=== PATIENT | female | born 1940 | race Caucasian/White ===

== ENCOUNTER 2018-01-04 16:24 | Outpatient (CLI) | payer MEDICARE ==
[2018-01-04 19:07] LABS: BASOPHILS # (AUTO) 0.1 10^3/uL (0.0-0.1); BASOPHILS % (AUTO) 1.3 %; EOSINOPHILS # (AUTO) 0.1 10^3/uL (0.0-0.7); EOSINOPHILS % (AUTO) 2.2 %; HGB - HEMOGLOBIN 13.2 g/dL (12.0-16.0); LYMPHOCYTES # (AUTO) 1.7 10^3/uL (1.5-3.5); MEAN CORPUSCULAR HEMOGLOBIN 32.3 pg (27.0-31.0); MEAN CORPUSCULAR HGB CONC 33.1 g/dL (32.0-36.0); MEAN CORPUSCULAR VOLUME 97.6 fL (81.0-99.0); MEAN PLATELET VOLUME 8.2 fL (7.9-10.8); MONOCYTES # (AUTO) 0.8 10^3/uL (0.0-1.0); NEUTROPHILS # (AUTO) 2.8 10^3/uL (1.5-6.6); NEUTROPHILS % (AUTO) 51.5 %; PLT - PLATELET COUNT 331 10^3/uL (130-450); RED BLOOD COUNT 4.09 10^6/uL (4.20-5.40); RED CELL DISTRIBUTION WIDTH 15.5 % (12.0-15.0); WHITE BLOOD COUNT 5.5 x10^3/uL (4.8-10.8)
[2018-01-04 19:21] LABS: ALBUMIN 3.9 g/dL (3.2-5.5); ALBUMIN/GLOBULIN RATIO 1.1 (1.0-2.2); ALKALINE PHOSPHATASE 83 IU/L (42-121); ALT ALANINE AMINOTRANSFERASE 16 IU/L (10-60); AST ASPARTATE AMINOTRANSFERASE 28 IU/L (10-42); BILIRUBIN,TOTAL 0.5 mg/dL (0.2-1.0); BUN - BLOOD UREA NITROGEN 16 mg/dL (6-20); CALCIUM 9.4 mg/dL (8.5-10.3); CARBON DIOXIDE - CO2 25 mmol/L (21-32); CHLORIDE 102 mmol/L (101-111); GFR - MDRD 54 (>89); GLUCOSE 91 mg/dL (70-100); SODIUM 137 mmol/L (135-145); TOTAL PROTEIN 7.4 g/dL (6.7-8.2)
[2018-01-04 20:02] LABS: THYROID STIMULATING HORMONE 74.06 uIU/mL (0.34-5.60)
[2018-01-04 20:36] LABS: FREE T4 (FREE THYROXINE) 0.48 ng/dL (0.58-1.64)
== END 2018-01-04 16:25 | disposition home or self-care (01) ==
LOC: LAB.WCP 16:24
PROVIDERS: ATTEND Family Medicine
DX: R63.4 Abnormal weight loss (principal); E03.9 Hypothyroidism, unspecified; C91.10 Chronic lymphocytic leukemia of B-cell type not having achieved remission
CPT/HCPCS: 36415; 80053; 84439; 84443; 84481; 85025

== ENCOUNTER 2018-02-03 13:42 | Outpatient (CLI) | payer MEDICARE ==
[2018-02-03] MEDS ORDERED: IOPAMIDOL-300 100 ML VIAL ONE (13:58)
[2018-02-03] MEDS ORDERED: IOPAMIDOL-300 50 ML VIAL ONE (13:58)
[2018-02-03] MEDS ORDERED: IOPAMIDOL-300 50 ML VIAL PO ONE (15:13)
[2018-02-03] MEDS ORDERED: IOPAMIDOL-300 100 ML VIAL IVP ONE (15:13)
--- NOTE | 2018-02-04 14:19 | CT Report ---
CT CHEST WITH CONTRAST: 02/03/2018 CLINICAL INDICATION: Weight loss, history of breast cancer. TECHNIQUE: Axial CT images of the chest were obtained with 100 mL Isovue 300 intravenously. COMPARISON: No previous CT is available for comparison. FINDINGS: The heart and great vessels demonstrate atherosclerotic calcifications. No hilar or mediastinal lymphadenopathy is present. A moderate hiatal hernia is present. The lungs demonstrate emphysema. A calcified granuloma is noted in the right upper lobe. No effusion or pneumothorax is present. No noncalcified pulmonary nodule is appreciated. Osseous structures demonstrate degenerative changes. IMPRESSION: NO EVIDENCE OF METASTATIC DISEASE. EMPHYSEMA. OLD GRANULOMATOUS DISEASE. HIATAL HERNIA. CT DOSE REDUCTION STATEMENT In accordance with CT protocol optimization, one or more of the following dose reduction techniques were utilized for this exam: automated exposure control, adjustment of mA and/or KV based on patient size, or use of iterative reconstructive technique. TD: 02/04/2018 14:18
--- NOTE | 2018-02-04 14:22 | CT Report ---
CT ABDOMEN AND PELVIS WITH CONTRAST: 02/03/2018 CLINICAL INDICATION: Weight loss, history of breast cancer. COMPARISON: 02/19/2013. TECHNIQUE: Axial CT images of the abdomen and pelvis were obtained with 100 mL Isovue 300 intravenously as well as oral contrast. FINDINGS: ABDOMEN: There is a moderate hiatal hernia present. The liver, spleen, pancreas, kidneys and adrenal glands are unremarkable. The gallbladder is not dilated. No bowel dilatation, free gas, or free fluid is present. No abdominal adenopathy is seen. PELVIS: Postoperative changes of hysterectomy are present. No pelvic adenopathy or free fluid is present. Colonic diverticulosis is seen, without CT evidence of diverticulitis. Osseous structures demonstrate degenerative changes. IMPRESSION: NO EVIDENCE OF METASTATIC DISEASE. POSTOPERATIVE CHANGES OF HYSTERECTOMY. CT DOSE REDUCTION STATEMENT In accordance with CT protocol optimization, one or more of the following dose reduction techniques were utilized for this exam: automated exposure control, adjustment of mA and/or KV based on patient size, or use of iterative reconstructive technique. TD: 02/04/2018 14:21
== END 2018-02-03 13:43 | disposition home or self-care (01) ==
LOC: DI 13:42
PROVIDERS: ATTEND Family Medicine
DX: C50.512 Malignant neoplasm of lower-outer quadrant of left female breast (principal); R63.4 Abnormal weight loss
CPT/HCPCS: 71260; 74177; Q9967

== ENCOUNTER 2018-02-27 15:24 | Outpatient (CLI) | payer MEDICARE | END 2018-02-27 15:25 | disposition home or self-care (01) | LOC: LAB.WCP 15:24 | PROVIDERS: ATTEND Family Medicine | DX: R63.4 Abnormal weight loss (principal) | CPT/HCPCS: 36415; 84443 ==

== ENCOUNTER 2018-03-03 10:46 | Outpatient (CLI) | payer MEDICARE ==
--- NOTE | 2018-03-03 16:56 | Nuclear Medicine Report ---
EXAM: BONE SCAN EXAM DATE: 03/03/2018 03:23 PM. CLINICAL HISTORY: BREAST CANCER. COMPARISON: CT 02/03/2018. TECHNIQUE: Following the intravenous administration of 30.6 mCi of technetium 99m MDP and an appropri ate delay, a whole-body scan was performed in anterior and posterior projections. FINDINGS: Exam Quality: Normal overall osseous radiotracer uptake. Physiological tracer uptake in bilateral col lecting systems. Skull: No focal uptake. Thorax: No focal lesions in ribs or sternum. Pelvis: No focal lesions. Spine: There is a convex left thoracolumbar scoliotic curvature. No abnormal focal increased uptake i n the spine. IMPRESSION: No scintigraphic evidence to indicate skeletal metastatic disease. [facility] Referring Provider Line: [phone] SITE ID: [id number]
== END 2018-03-03 10:47 | disposition home or self-care (01) ==
LOC: DI 10:46
PROVIDERS: ATTEND Internal Medicine
DX: C50.919 Malignant neoplasm of unspecified site of unspecified female breast (principal)
CPT/HCPCS: 78306; A9503

== ENCOUNTER 2018-12-07 13:35 | Outpatient (CLI) | payer MEDICARE ==
--- NOTE | 2018-12-08 09:43 | XRAY Report ---
Reason: WRIST PAIN Procedure Date: 12/07/2018 Accession Number: [id number] / [id number] Procedure: WCP - Wrist 3 View RT CPT Code: FULL RESULT: EXAM: RIGHT WRIST RADIOGRAPHY EXAM DATE: 12/07/2018 01:59 PM. CLINICAL HISTORY: Wrist pain. COMPARISON: None. TECHNIQUE: 3 views. FINDINGS: Presumed contracture of the right hand is noted. Limited positioning somewhat limits evaluation of the carpal bones. The carpal rows appear preserved. There are advanced degenerative changes of the first carpometacarpal interaction resulting in subluxation of the thumb with less severe degenerative changes also seen at the second carpometacarpal interface, likely as a result of the former. Bones are qualitatively osteopenic which limits sensitivity for fracture. Despite this, there is a lucency through the distal radius which is concerning for nondisplaced fracture and demonstrates surrounding soft tissue swelling. IMPRESSION: Distal radial fracture. Qualitatively osteopenia. [facility] The call report notification system was initiated by Dr. Jensen Rasmussen at 09:32 AM on 12/08/2018. ADDENDUM: 12/08/18 10:06 The above call report findings were discussed with Skylar Miguel by Dr. Jensen Rasmussen at 10:06 AM on 12/08/2018.
== END 2018-12-07 13:36 | disposition home or self-care (01) ==
LOC: DI.WCP 13:35
PROVIDERS: ATTEND Family Medicine
DX: S52.501A Unspecified fracture of the lower end of right radius, initial encounter for closed fracture (principal); M85.88 Other specified disorders of bone density and structure, other site

== ENCOUNTER 2019-01-08 08:00 | Outpatient (CLI) | payer MEDICARE | END 2019-01-08 23:59 | disposition home or self-care (01) | LOC: LAB.R 08:00 | PROVIDERS: ATTEND Family Medicine | DX: L03.90 Cellulitis, unspecified (principal) | CPT/HCPCS: 87070; 87205 ==

== ENCOUNTER 2019-01-08 11:32 | Outpatient (CLI) | payer MEDICARE ==
--- NOTE | 2019-01-08 12:37 | XRAY Report ---
Reason: RIGHT RADIUS FRACTURE Procedure Date: 01/08/2019 Accession Number: [id number] / [id number] Procedure: WCP - Wrist 3 View RT CPT Code: FULL RESULT: EXAM: RIGHT WRIST RADIOGRAPHY EXAM DATE: 01/08/2019 11:42 AM. CLINICAL HISTORY: Right radius fracture. COMPARISON: WRIST 3 VIEW RT 12/07/2018 1:42 PM. TECHNIQUE: 3 views. FINDINGS: There has been interval impaction of the previously difficult to detect distal radial fracture with apex dorsal angulation. Hand contracture is again noted. Advanced degenerative changes of the carpometacarpal interaction predominantly of the first ray. Bones remain qualitatively osteopenic. IMPRESSION: Redemonstration of distal radial fracture, now clearly impacted. [facility]
== END 2019-01-08 11:33 | disposition home or self-care (01) ==
LOC: DI.WCP 11:32
PROVIDERS: ATTEND Family Medicine
DX: S52.501D Unspecified fracture of the lower end of right radius, subsequent encounter for closed fracture with routine healing (principal); L03.90 Cellulitis, unspecified
CPT/HCPCS: 87070; 87205

== ENCOUNTER 2019-01-24 11:32 | Outpatient (CLI) | payer MEDICARE ==
[2019-01-24 19:22] LABS: BASOPHILS # (AUTO) 0.1 10^3/uL (0.0-0.1); BASOPHILS % (AUTO) 1.5 %; EOSINOPHILS # (AUTO) 0.2 10^3/uL (0.0-0.7); EOSINOPHILS % (AUTO) 4.4 %; HGB - HEMOGLOBIN 14.2 g/dL (12.0-16.0); LYMPHOCYTES % (AUTO) 38.2 %; MEAN CORPUSCULAR HEMOGLOBIN 32.3 pg (27.0-31.0); MEAN CORPUSCULAR HGB CONC 32.5 g/dL (32.0-36.0); MEAN CORPUSCULAR VOLUME 99.4 fL (81.0-99.0); MEAN PLATELET VOLUME 8.4 fL (7.9-10.8); MONOCYTES # (AUTO) 0.4 10^3/uL (0.0-1.0); MONOCYTES % (AUTO) 8.6 %; NEUTROPHILS # (AUTO) 2.4 10^3/uL (1.5-6.6); NEUTROPHILS % (AUTO) 47.3 %; PLT - PLATELET COUNT 336 10^3/uL (130-450); RED BLOOD COUNT 4.39 10^6/uL (4.20-5.40); RED CELL DISTRIBUTION WIDTH 14.1 % (12.0-15.0); WHITE BLOOD COUNT 5.2 x10^3/uL (4.8-10.8)
[2019-01-24 19:33] LABS: ALBUMIN/GLOBULIN RATIO 1.1 (1.0-2.2); BILIRUBIN,TOTAL 0.5 mg/dL (0.2-1.0); CALCIUM 8.8 mg/dL (8.5-10.3); CREATININE 0.8 mg/dL (0.4-1.0); TOTAL PROTEIN 7.6 g/dL (6.7-8.2)
== END 2019-01-24 11:33 | disposition home or self-care (01) ==
LOC: LAB.WCP 11:32
PROVIDERS: ATTEND Family Medicine
DX: M06.9 Rheumatoid arthritis, unspecified (principal); C50.912 Malignant neoplasm of unspecified site of left female breast; E03.9 Hypothyroidism, unspecified
CPT/HCPCS: 36415; 80053; 83615; 84443; 85025; 85651

== ENCOUNTER 2019-01-25 11:32 | Outpatient (CLI) | payer MEDICARE | END 2019-01-25 11:33 | disposition home or self-care (01) | LOC: LAB.WCP 11:32 | PROVIDERS: ATTEND Family Medicine | DX: M06.9 Rheumatoid arthritis, unspecified (principal); C50.912 Malignant neoplasm of unspecified site of left female breast; E03.9 Hypothyroidism, unspecified | CPT/HCPCS: 83615 ==

== ENCOUNTER 2019-04-25 14:48 | Outpatient (CLI) | payer MEDICARE ==
[2019-04-25 15:24] LABS: BASOPHILS # (AUTO) 0.1 10^3/uL (0.0-0.1); BASOPHILS % (AUTO) 1.2 %; EOSINOPHILS # (AUTO) 0.4 10^3/uL (0.0-0.7); EOSINOPHILS % (AUTO) 7.1 %; HGB - HEMOGLOBIN 13.2 g/dL (12.0-16.0); LYMPHOCYTES # (AUTO) 2.1 10^3/uL (1.5-3.5); LYMPHOCYTES % (AUTO) 36.9 %; MEAN CORPUSCULAR HEMOGLOBIN 31.3 pg (27.0-31.0); MEAN CORPUSCULAR HGB CONC 31.6 g/dL (32.0-36.0); MEAN CORPUSCULAR VOLUME 99.1 fL (81.0-99.0); MEAN PLATELET VOLUME 9.1 fL (7.9-10.8); MONOCYTES # (AUTO) 0.5 10^3/uL (0.0-1.0); MONOCYTES % (AUTO) 8.8 %; NEUTROPHILS # (AUTO) 2.6 10^3/uL (1.5-6.6); NEUTROPHILS % (AUTO) 45.7 %; PLT - PLATELET COUNT 358 10^3/uL (130-450); RED BLOOD COUNT 4.22 10^6/uL (4.20-5.40); RED CELL DISTRIBUTION WIDTH 13.9 % (12.0-15.0); WHITE BLOOD COUNT 5.8 x10^3/uL (4.8-10.8)
[2019-04-25 15:47] LABS: ALBUMIN 3.7 g/dL (3.2-5.5); ALBUMIN/GLOBULIN RATIO 1.1 (1.0-2.2); BILIRUBIN,TOTAL 0.4 mg/dL (0.2-1.0); CALCIUM 8.8 mg/dL (8.5-10.3); CREATININE 0.9 mg/dL (0.4-1.0); TOTAL PROTEIN 7.2 g/dL (6.7-8.2)
[2019-04-25 17:28] LABS: FREE T4 (FREE THYROXINE) 1.02 ng/dL (0.58-1.64)
== END 2019-04-25 14:49 | disposition home or self-care (01) ==
LOC: LAB 14:48
PROVIDERS: ATTEND Family Medicine
DX: R06.00 Dyspnea, unspecified (principal); E03.9 Hypothyroidism, unspecified
CPT/HCPCS: 36415; 80053; 83880; 84439; 84443; 85025

== ENCOUNTER 2019-05-28 09:47 | Outpatient (CLI) | payer MEDICARE | END 2019-05-28 09:48 | disposition home or self-care (01) | LOC: DI 09:47 | PROVIDERS: ATTEND Family Medicine | DX: R06.00 Dyspnea, unspecified (principal); M85.80 Other specified disorders of bone density and structure, unspecified site | CPT/HCPCS: 71046; 93306 ==

== ENCOUNTER 2019-05-28 09:48 | Outpatient (CLI) | payer MEDICARE ==
--- NOTE | 2019-05-28 16:15 | XRAY Report ---
Reason: DYSPNEA ON EXERTION Procedure Date: 05/28/2019 Accession Number: [id number] / [id number] Procedure: XR - Chest 2 View X-Ray CPT Code: 20851 FULL RESULT: EXAM: CHEST RADIOGRAPHY EXAM DATE: 05/28/2019 10:04 AM. CLINICAL HISTORY: DYSPNEA ON EXERTION. COMPARISON: XR CHEST PA AND LAT 11/07/2012 11:46 AM CHEST W/ 02/03/2018 3:03 PM. TECHNIQUE: 2 views. FINDINGS: Lungs/Pleura: No focal opacities evident. No pleural effusion. No pneumothorax. Normal volumes. Mediastinum: Heart and mediastinal contours are stable including calcified aorta, not enlarged. Other: S-shaped thoracolumbar scoliosis is again seen, similar in appearance to 2012. Bones appear qualitatively osteopenic. Mild thoracic kyphosis. Suspect interval development of mid to lower thoracic compression fracture, poorly visualized due to osteopenia, potentially T8. IMPRESSION: Question interval development of thoracic compression fracture, level and nature of the finding not well seen given profound osteopenia, possibly T8. [facility]
== END 2019-05-28 09:49 | disposition home or self-care (01) ==
LOC: DI 09:48
PROVIDERS: ATTEND Family Medicine
DX: R06.00 Dyspnea, unspecified (principal); M85.80 Other specified disorders of bone density and structure, unspecified site
CPT/HCPCS: 71046

== ENCOUNTER 2019-05-30 14:20 | Outpatient (CLI) | payer MEDICARE ==
--- NOTE | 2019-05-31 15:32 | XRAY Report ---
Reason: ACUTE LOW BACK PAIN Procedure Date: 05/30/2019 Accession Number: [id number] / [id number] Procedure: WCP - Lumbar Spine 2 View CPT Code: FULL RESULT: EXAM: LUMBOSACRAL SPINE RADIOGRAPHY EXAM DATE: 05/30/2019 02:34 PM. CLINICAL HISTORY: Acute low back pain. COMPARISONS: ABDOMEN/PELVIS W/ 02/03/2018 3:03 PM. TECHNIQUE: 2 views. FINDINGS: Alignment: There is essentially severe levoconvex thoracolumbar scoliosis centered about L1, approximately 38 degrees. While the scoliosis is overall similar in configuration to prior, the finding appears subjectively more severe, evaluation limited by differences in technique. No definite listhesis is seen on the lateral view. Bones: Five qfh-ywf-deqqugh lumbar vertebral bodies are present. The bones are qualitatively osteopenic; this limits evaluation for underlying fractures or masses. Disks: There are multilevel degenerative changes most pronounced at the apex of the scoliosis. Facets: There is moderate to severe facet arthropathy of the lower lumbar spine. Sacroiliac Joints: Unremarkable. Soft Tissues: Markedly calcified aorta. IMPRESSION: Severe scoliosis with osteopenia, interval fracture is not seen but not excluded. Recommendation: In the setting of acute lower back pain in the mid lumbar area, noncontrast MRI of the lumbar spine is recommended in this patient. [facility]
== END 2019-05-30 23:59 | disposition home or self-care (01) ==
LOC: DI.WCP 14:20
PROVIDERS: ATTEND Family Medicine
DX: M51.36 Other intervertebral disc degeneration, lumbar region (principal); M47.816 Spondylosis without myelopathy or radiculopathy, lumbar region; M85.88 Other specified disorders of bone density and structure, other site; M41.85 Other forms of scoliosis, thoracolumbar region
CPT/HCPCS: 72100

== ENCOUNTER 2019-08-10 10:16 | Outpatient (CLI) | payer MEDICARE ==
--- NOTE | 2019-08-10 15:58 | DEXA Report ---
Reason: POSTMENOPAUSAL, OSTEOPOROSIS Procedure Date: 08/10/2019 Accession Number: [id number] / [id number] Procedure: DEX - Dexa Spine and/or Hip CPT Code: FULL RESULT: EXAM: Dexa Spine and/or Hip DATE: 08/10/2019 10:41 AM CLINICAL HISTORY: POSTMENOPAUSAL, OSTEOPOROSIS FOLLOW-UP TECHNIQUE: Dual energy x-ray absorptiometry (DXA) was performed on a [employer] System. Regions measured are the AP Spine, femoral neck, and if needed forearm. COMPARISON: 01/15/2008 In accordance with the International Society for Clinical Densitometry (ISCD) guidelines, data from previous exams may be reanalyzed using current recommendations and techniques. This is done to allow a more accurate basis for comparison with the current study. FINDINGS: The data for the lumbar spine is as follows: BMD (g/cm/cm) T-SCORE Z-SCORE REGION L1 0.895 -2.0 0.0 L2 1.045 -1.3 0.7 L3 0.996 -1.7 0.3 L4 0.974 -1.9 0.1 TOTAL 0.979 -1.7 0.3 NOTE: All evaluable vertebrae are used for classification The data for the hip is as follows: BMD (g/cm/cm) T-SCORE Z-SCORE REGION Neck 0.684 -2.5 -0.3 TOTAL 0.648 -2.9 -0.8 NOTE: The femoral neck or total proximal femur, whichever is lowest, is used for classification. IMPRESSION: THE WHO CLASSIFICATION BASED ON THE INTERNATIONAL REFERENCE STANDARD IS OSTEOPOROSIS, REFERENCE TOTAL LEFT HIP. THE FRACTURE RISK IS HIGH. RECOMMENDATION: Patients with diagnosis of osteoporosis or osteopenia should have regular bone mineral density assessment. For those eligible for Medicare, routine testing is allowed once every 2 years. Testing frequency can be increased for patients who have rapidly progressing disease or for those who are receiving medical therapy to restore bone mass. COMMENT: World Health Organization (WHO) definitions for osteoporosis and osteopenia: NORMAL BMD: T-score at -1.0 or higher, fracture risk is low OSTEOPENIA BMD: T-score between -1.0 and -2.5, fracture risk is increased. OSTEOPOROSIS BMD: T-score at -2.5 or lower, fracture risk is high. National Osteoporosis Foundation recommends: 1. Obtain adequate dietary calcium (at least 1200 mg per day) and vitamin D (400-800 international units per day). 2. Participate, as appropriate, in regular weightbearing and muscle-strengthening exercise. 3. Avoid tobacco use and reduce alcohol and caffeine intake. 4. For more detailed information see the website at www.NOF.org.
== END 2019-08-10 10:17 | disposition home or self-care (01) ==
LOC: DI 10:16
PROVIDERS: ATTEND Internal Medicine
DX: M81.0 Age-related osteoporosis without current pathological fracture (principal); C50.912 Malignant neoplasm of unspecified site of left female breast; C95.90 Leukemia, unspecified not having achieved remission; R63.4 Abnormal weight loss
CPT/HCPCS: 77080

== ENCOUNTER 2020-05-07 15:59 | Outpatient (CLI) | payer MEDICARE ==
--- NOTE | 2020-05-07 17:10 | XRAY Report ---
PROCEDURE: Hand 3 View BILAT INDICATIONS: BILAT RHEUMATOID ARTHRITIS TECHNIQUE: 3 views of the hand(s) acquired. COMPARISON: None FINDINGS: Bones: No fractures or dislocations. No suspicious bony lesions. There is moderate to severe first CMC narrowing, left greater than right with areas of periarticular osteophyte and subchondral sclero sis/lucencies. There are diffuse areas of IP degenerative narrowing at all digits bilaterally appeari ng relatively symmetric. Small periarticular osteophytes are present. No definitive areas of erosive change are identified. Soft tissues: No suspicious soft tissue calcifications. IMPRESSION: Bilateral first CMC and IP areas of arthritic narrowing bilaterally as above. Reviewed by: Mony Henry MD on 05/07/2020 5:08 PM PDT Approved by: Mony Henry MD on 05/07/2020 5:08 PM PDT Station ID: [id number]
== END 2020-05-07 16:00 | disposition home or self-care (01) ==
LOC: DI.N 15:59
PROVIDERS: ATTEND Family Medicine
DX: M06.842 Other specified rheumatoid arthritis, left hand (principal); M06.841 Other specified rheumatoid arthritis, right hand

== ENCOUNTER 2020-11-05 14:47 | Emergency (ER) | payer MEDICARE ==
[2020-11-05] MEDS ORDERED: SODIUM CHLORIDE 0.9% 1,000 ML IV STA (17:23)
--- NOTE | 2020-11-05 17:28 | ED Physician Documentation ---
History of Present Illness - Stated complaint Stated Complaint: DIZZINESS - Chief complaint Chief Complaint: Neuro - History obtained from History obtained from: Patient - History of Present Illness Timing: How many weeks ago (2) - Additonal information Additional information: 80-year-old female with a 2-week history of dizziness. She states that when she goes to get up out of bed she is dizzy when she woke up she was dizzy she feels that anytime she goes to move or stand she is dizzy. She does not have any nausea she is not had any vomiting she not having diarrhea she does not drink much in the way of fluids.She does complain of falls and an unsteady gait. Review of Systems Constitutional: denies: Fever Eyes: denies: Decreased vision Ears: denies: Ear pain Nose: denies: Rhinorrhea / runny nose, Congestion Throat: denies: Sore throat Cardiac: denies: Chest pain / pressure, Palpitations Respiratory: reports: Dyspnea, Cough GI: denies: Abdominal Pain, Nausea, Vomiting : denies: Dysuria, Frequency Skin: denies: Rash Musculoskeletal: denies: Neck pain, Back pain, Extremity pain Neurologic: denies: Generalized weakness, Focal weakness, Numbness, Confused, Altered mental status PD PAST MEDICAL HISTORY - Past Medical History Cardiovascular: None Respiratory: Asthma, Shortness of breath, COPD, Emphysema Endocrine/Autoimmune: HyPOthyroidism GI: Diverticulitis, GERD, Hiatal hernia : Frequency, None, Incontinence HEENT: None Psych: Depression, Anxiety Musculoskeletal: Rheumatoid arthritis Derm: None - Past Surgical History General: Appendectomy, Hiatal hernia repair, 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, 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 HEENT: Cataracts - Present Medications Home Medications: Ambulatory Orders Medication Instructions Recorded Confirmed LORazepam [Ativan] 1 mg PO HS 03/19/13 11/05/20 Levothyroxine [Synthroid] 125 mcg PO QDAC 03/19/13 07/25/19 diphenhydrAMINE HCl [Benadryl] 50 mg PO BID PRN 03/19/13 11/05/20 Nitrofurantoin Monohyd/M-Cryst 100 mg PO BID #10 capsule 11/05/20 [Macrobid 100 mg Capsule] PARoxetine HCl [Paxil] 20 mg PO DAILY 11/05/20 11/05/20 - Allergies Allergies/Adverse Reactions: Allergies Allergy/AdvReac Type Severity Reaction Status Date / Time christiane Allergy Severe Edema Verified 11/05/20 15:05 Sulfa (Sulfonamide AdvReac Unknown Rash Verified 11/05/20 15:05 Antibiotics) Results - Vitals Vitals: Vital Signs - 24 hr 11/05/20 11/05/20 15:05 17:44 Temperature 36.5 C 37.1 C Heart Rate 105 H 96 Respiratory 18 18 Rate Blood Pressure 141/88 H 131/86 H O2 Saturation 94 95 Oxygen O2 Source Room air - Labs Labs: Laboratory Tests 11/05/20 11/05/20 11/05/20 17:30 17:30 18:25 WBC 7.5 RBC 4.65 Hgb 14.7 Hct 46.4 MCV 99.8 H MCH 31.6 H MCHC 31.7 L RDW 12.9 Plt Count 374 MPV 9.4 Neut # (Auto) 4.2 Lymph # (Auto) 2.4 Reynolds # (Auto) 0.6 Eos # (Auto) 0.2 Baso # (Auto) 0.1 Absolute Nucleated RBC 0.00 Nucleated RBC % 0.0 Sodium 144 Potassium 5.0 Chloride 103 Carbon Dioxide 26 Anion Gap 15.0 H BUN 29 H Creatinine 0.9 Estimated GFR (MDRD) 60 L Glucose 109 H Calcium 10.4 H Total Bilirubin 0.5 AST 23 ALT 15 Alkaline Phosphatase 96 Total Protein 8.0 Albumin 4.1 Globulin 3.9 Albumin/Globulin Ratio 1.1 Lipase 54 H Urine Color YELLOW Urine Clarity CLEAR Urine pH 5.5 Ur Specific Rudolph >=1.030 H Urine Protein NEGATIVE Urine Glucose (UA) NEGATIVE Urine Ketones TRACE Urine Occult Blood NEGATIVE Urine Nitrite POSITIVE H Urine Bilirubin NEGATIVE Urine Urobilinogen 0.2 (NORMAL) Ur Leukocyte Esterase NEGATIVE Ur Microscopic Review INDICATED Urine Culture Comments Not Reportable PD MEDICAL DECISION MAKING - ED course Complexity details: reviewed results, re-evaluated patient, considered differential, d/w patient ED course: 80 y/o female with a history of dizziness is found to be dehydrated on interrogation of the IVC. She is administered IV saline. Departure - Departure Disposition: 01 Home, Self Care Clinical Impression: Dehydration Urinary tract infection Qualifiers: Urinary tract infection type: acute cystitis Hematuria presence: without hematuria Qualified Code(s): N30.00 - Acute cystitis without hematuria Condition: Stable Instructions: ED Dehydration, ED UTI Cystitis Female Follow-Up: Everton Burrows MD [Primary Care Provider] - Prescriptions: Nitrofurantoin Monohyd/M-Cryst [Macrobid 100 mg Capsule] 100 mg PO BID #10 capsule
[2020-11-05 17:47] LABS: BASOPHILS # (AUTO) 0.1 10^3/uL (0.0-0.1); BASOPHILS % (AUTO) 0.9 %; EOSINOPHILS # (AUTO) 0.2 10^3/uL (0.0-0.7); EOSINOPHILS % (AUTO) 2.5 %; HGB - HEMOGLOBIN 14.7 g/dL (12.0-16.0); LYMPHOCYTES # (AUTO) 2.4 10^3/uL (1.5-3.5); LYMPHOCYTES % (AUTO) 31.8 %; MEAN CORPUSCULAR HEMOGLOBIN 31.6 pg (27.0-31.0); MEAN CORPUSCULAR HGB CONC 31.7 g/dL (32.0-36.0); MEAN CORPUSCULAR VOLUME 99.8 fL (81.0-99.0); MEAN PLATELET VOLUME 9.4 fL (7.9-10.8); MONOCYTES # (AUTO) 0.6 10^3/uL (0.0-1.0); MONOCYTES % (AUTO) 8.4 %; NEUTROPHILS # (AUTO) 4.2 10^3/uL (1.5-6.6); NEUTROPHILS % (AUTO) 56.3 %; PLT - PLATELET COUNT 374 10^3/uL (130-450); RED BLOOD COUNT 4.65 10^6/uL (4.20-5.40); RED CELL DISTRIBUTION WIDTH 12.9 % (12.0-15.0); WHITE BLOOD COUNT 7.5 x10^3/uL (4.8-10.8)
[2020-11-05 17:57] LABS: ALBUMIN 4.1 g/dL (3.2-5.5); ALBUMIN/GLOBULIN RATIO 1.1 (1.0-2.2); BILIRUBIN,TOTAL 0.5 mg/dL (0.2-1.0); CALCIUM 10.4 mg/dL (8.5-10.3); CREATININE 0.9 mg/dL (0.4-1.0)
[2020-11-05 19:41] LABS: BILIRUBIN,URINE NEGATIVE (NEGATIVE); GLUCOSE, URINE (UA) NEGATIVE (NEGATIVE); KETONES,URINE (UA) TRACE mg/dL (NEGATIVE); LEUKOCYTE ESTERASE, URINE NEGATIVE (NEGATIVE); NITRITE,URINE POSITIVE (NEGATIVE); OCCULT BLOOD,URINE NEGATIVE (NEGATIVE); PH,URINE 5.5 PH (5.0-7.5); PROTEIN,URINE NEGATIVE (NEGATIVE); UROBILINOGEN,URINE 0.2 (NORMAL) E.U./dL (NORMAL)
[2020-11-05 19:46] LABS: CLARITY,URINE CLEAR (CLEAR)
[2020-11-05 19:56] LABS: BACTERIA,URINE Moderate /HPF (None Seen); MUCUS,URINE Moderate Strands; RBC,URINE 0-5 /HPF (0-5); SQUAMOUS EPITHELIAL CELL,UR FEW Squamous (<= Few); YEAST,URINE PRESENT
[2020-11-05 19:58] VITALS: BP 133/80
== END 2020-11-05 20:11 | disposition home or self-care (01) ==
LOC: ED 14:47
DX: E86.0 Dehydration (principal); N30.00 Acute cystitis without hematuria; R42 Dizziness and giddiness; R26.81 Unsteadiness on feet; Z91.81 History of falling
CPT/HCPCS: 36415; 80053; 81001; 81003; 83690; 85025; 87077; 87086; 87181; 96360; 99284

== ENCOUNTER 2021-09-25 14:42 | Outpatient (CLI) | payer MEDICARE | END 2021-09-25 23:59 | disposition home or self-care (01) | LOC: LAB.N 14:42 | PROVIDERS: ATTEND Family Medicine | DX: R05.9 Cough, unspecified (principal); Z20.822 Contact with and (suspected) exposure to COVID-19 | CPT/HCPCS: 87275; 87276; U0004 ==

== ENCOUNTER 2021-09-25 15:34 | Outpatient (CLI) | payer MEDICARE ==
--- NOTE | 2021-09-25 16:47 | XRAY Report ---
PROCEDURE: Chest 2 View X-Ray INDICATIONS: COUGH, COPD TECHNIQUE: 2 view(s) of the chest. COMPARISON: None. FINDINGS: Surgical changes and devices: Clips are present overlying the left upper chest wall. Lungs and pleura: No pleural effusions or pneumothorax. Lungs are clear. COPD changes are present. Mediastinum: Mediastinal contours are normal. Heart size is normal. Bones and chest wall: No suspicious bony abnormalities. Soft tissues appear unremarkable. Leftward scoliotic curvature is present. IMPRESSION: No acute pulmonary process. Reviewed by: Mony Henry MD on 09/25/2021 4:45 PM PST Approved by: Mony Henry MD on 09/25/2021 4:45 PM PST Station ID: [id number]
== END 2021-09-25 23:59 | disposition home or self-care (01) ==
LOC: DI.N 15:34
PROVIDERS: ATTEND Family Medicine
DX: J44.9 Chronic obstructive pulmonary disease, unspecified (principal); R05.9 Cough, unspecified

== ENCOUNTER 2022-03-10 12:38 | Outpatient (CLI) | payer MEDICARE ==
--- NOTE | 2022-03-10 16:02 | DEXA Report ---
PROCEDURE: Dexa Spine and/or Hip INDICATIONS: POSTMENOPAUSAL TECHNIQUE: Dual energy x-ray absorptiometry (DXA) was performed on a [employer] System. Regions measur ed are the AP Spine, femoral neck, and if needed forearm. COMPARISON: 08/10/2019. FINDINGS: Lumbar spine could not be utilized due to scoliosis and density measurements of the left forearm were obtained. Left: Hip: Bone Mineral Density 0.650 g/cm/cm,T score -2.8, osteoporosis Left Femoral Neck: Bone Mineral Density 0.719 g/cm/cm, T score -2.3, osteopenia Left forearm: Bone Mineral Density 0.306 g/cm/cm, T score -6.1, osteoporosis (T score greater or equal to -1.0: NORMAL) (T score from -1.1 to -2.4: OSTEOPENIA) (T score less than or equal to -2.5 to: OSTEOPOROSIS) Impression: Osteoporosis. Bone mineral density has decreased 0.3% in the interval since prior exam obtained 07/18. Patients with diagnosis of osteoporosis or osteopenia should have regular bone mineral density assess ment. For those eligible for Medicare, routine testing is allowed once every 2 years. Testing frequ ency can be increased for patients who have rapidly progressing disease or for those who are receivin g medical therapy to restore bone mass. Reviewed by: Oma Dumont MD, PhD on 03/10/2022 4:00 PM PDT Approved by: Oma Dumont MD, PhD on 03/10/2022 4:00 PM PDT Station ID: [id number]
== END 2022-03-10 12:39 | disposition home or self-care (01) ==
LOC: DI 12:38
PROVIDERS: ATTEND Family Medicine
DX: Z13.820 Encounter for screening for osteoporosis (principal); M81.0 Age-related osteoporosis without current pathological fracture; M41.9 Scoliosis, unspecified; Z78.0 Asymptomatic menopausal state

== ENCOUNTER 2023-05-09 13:08 | Emergency (ER) | payer MEDICARE ==
[2023-05-09 13:20] VITALS: BP 134/78
[2023-05-09] MEDS ORDERED: CHERRY SYRUP 10 ML UDC PO ONE (13:46)
[2023-05-09] MEDS ORDERED: DEXAMETHASONE 10 MG/ML VIAL PO STA (13:46)
--- NOTE | 2023-05-09 13:50 | ED Physician Documentation ---
History of Present Illness - Stated complaint Stated Complaint: LT HAND PX - Chief complaint Chief Complaint: Ext Problem - History obtained from History obtained from: Patient - History of Present Illness Timing: Chronic Pain level max: 7 Pain level now: 6 - Additonal information Additional information: 82-year-old female longstanding history of rheumatoid arthritis presents to the emergency department complaint of left hand pain that has been increasing. She is requesting steroid injections into her MCP joints. No fevers. No chills. No trauma. Does not currently see a head concierge. Is not on any medications for her RA. 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, 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 HEENT: Cataracts - Present Medications Home Medications: Ambulatory Orders Medication Instructions Recorded Confirmed LORazepam [Ativan] 1 mg PO HS 03/19/13 11/05/20 Levothyroxine [Synthroid] 125 mcg PO QDAC 03/19/13 07/25/19 diphenhydrAMINE HCl [Benadryl] 50 mg PO BID PRN 03/19/13 11/05/20 Nitrofurantoin Monohyd/M-Cryst 100 mg PO BID #10 capsule 11/05/20 [Macrobid 100 mg Capsule] PARoxetine HCL [Paxil] 20 mg PO DAILY 11/05/20 11/05/20 HYDROcod/ACETAM 5/325 [Hana 5/325] 1 - 2 ea PO Q6H PRN #14 tablet 05/09/23 predniSONE [Deltasone] 20 mg PO DAILY #5 tablet 05/09/23 - Allergies Allergies/Adverse Reactions: Allergies Allergy/AdvReac Type Severity Reaction Status Date / Time kiwi Allergy Severe Edema Verified 05/09/23 13:12 Sulfa (Sulfonamide AdvReac Unknown Rash Verified 05/09/23 13:12 Antibiotics) - Social History Does the pt smoke?: No Smoking Status: Former smoker Does the pt drink ETOH?: No Does the pt have substance abuse?: No - Immunizations Immunizations are current?: Yes PD ED PE NORMAL - Vitals Vital signs reviewed: Yes - General General: Alert and oriented X 3, No acute distress - HEENT HEENT: Moist mucous membranes - Derm Derm: Warm and dry - Extremities Extremities: Other (Both hands are contractured, swelling each of the joints. No redness. No skin breakdown. Neurovascularly intact.) - Neuro Neuro: Alert and oriented X 3 - Psych Psych: Normal mood, Normal affect Results - Vitals Vitals: Vital Signs - 24 hr 05/09/23 13:12 Temperature 36.5 C Heart Rate 90 Respiratory 16 Rate Blood Pressure 134/78 H O2 Saturation 98 Oxygen O2 Source Room air - Rads (name of study) Left hand x-ray Relevant Findings:: Final report received, See rad report PD Medical Decision Making - ED course Complexity details: considered differential, d/w patient ED course: Patient with chronic deformity of both hands secondary to rheumatoid arthritis. No acute injuries. She states that she is having increasing pain from the arthritis. Will prescribe a small amount of pain medication for home. Given a dose of dexamethasone here. Will place on a short course of steroids. Recommend that she follow-up with the head concierge for further care. May benefit from hand physical therapy as well. Patient will follow-up with her doctor. Patient counseled regarding signs and symptoms for which I believe and urgent re-evaluation would be necessary. Patient with good understanding of and agreement to plan and is comfortable going home at this time This document was made in part using voice recognition software. While efforts are made to proofread this document, sound alike and grammatical errors may occur. Departure - Departure Disposition: Home, Self Care Clinical Impression: Rheumatoid arthritis Qualifiers: Rheumatoid arthritis location: unspecified site Rheumatoid factor presence: unspecified presence Qualified Code(s): M06.9 - Rheumatoid arthritis, unspecified Condition: Good Instructions: ED Arthritis Rheumatoid Follow-Up: Arnulfo Bear DO [Primary Care Provider] - Within 1 week Prescriptions: predniSONE [Deltasone] 20 mg PO DAILY #5 tablet HYDROcod/ACETAM 5/325 [Hana 5/325] 1 - 2 ea PO Q6H PRN #14 tablet PRN Reason: Pain Comments: Please follow-up with your doctor for further care. You will likely benefit from a consultation with a head concierge to discuss newer treatment options for your rheumatoid arthritis. Please discuss this with your doctor. Your prescriptions were sent to [facility] in [place]. I am prescribing a short course of narcotic pain medication for you. These are potentially dangerous and addictive medications that should be used carefully. These medications may constipate you. Take an lkjg-dmz-uzuhoih stool softener (docusate) twice daily with plenty of water while taking these medications. If you go 24 hours without a bowel movement, take kltl-rtn-itpgxmr miralax, per package instructions. Do not drink or drive while taking these medications. If you received narcotic or sedating medications while in the emergency department, do not drive for 24 hours. Store this medication in a safe, secure place and out of reach of children. It is a violation of federal law to give or sell this medication to another person or to use in a manner other than prescribed. The ED will not refill narcotic prescriptions, including prescriptions lost or stolen. To dispose of unwanted medications: 1. [facility] at [address] in [place] has a medication drop box. They accept prescription medications (in pill form) Tuesday through Tuesday 9:00 a.m. to 5:00 p.m. 2. The [facility] [employer] accepts prescription medications (in pill form only) for disposal year round. Call for more information. 3. Contact the [facility] for the next [facility] sponsored prescription drug collection event. , [phone], or [phone]; Forms: PCP List
--- NOTE | 2023-05-09 14:05 | XRAY Report ---
PROCEDURE: Hand 3 View LT INDICATIONS: hand pain TECHNIQUE: 3 views of the hand(s) acquired. COMPARISON: None. FINDINGS: Bones: There is diffuse osteopenia. Moderate osteoarthritic changes throughout left hand and wrist j oints are seen involving first CMC joint. No acute fracture or dislocation. No suspicious bony lesion s. Soft tissues: No suspicious soft tissue calcifications or masses. 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 No fracture or dislocation. Reviewed by: Latrell Negron MD on 05/09/2023 2:03 PM PDT Approved by: Latrell Negron MD on 05/09/2023 2:03 PM PDT Station ID: [id number]
== END 2023-05-09 14:11 | disposition home or self-care (01) ==
LOC: ED 13:08
DX: M06.9 Rheumatoid arthritis, unspecified (principal); J43.9 Emphysema, unspecified; E03.9 Hypothyroidism, unspecified; Z87.891 Personal history of nicotine dependence; Z79.899 Other long term (current) drug therapy
CPT/HCPCS: 73130; 99283; A9270